=== PATIENT | female | born 1990 | race African-American/Black ===

== ENCOUNTER 2016-12-12 08:58 | Emergency (ER) | payer MEDICAID ==
[~2016-12-12] VITALS: Ht 152.4 cm; Wt 65.9 kg
[2016-12-12] MEDS: VISCOUS LIDOCAINE 2% 15 ML UDC MM PRN ×2 (11:45→11:50)
[2016-12-12] MEDS ORDERED: ACETAMINOPHEN 325MG TABLET PO ONE (11:45)
[2016-12-12 12:40] VITALS: BP 124/68
== END 2016-12-12 13:05 | disposition home or self-care (01) ==
LOC: ER 08:59
DX: M54.9 Dorsalgia, unspecified (principal); J02.9 Acute pharyngitis, unspecified; R05 Cough; J45.909 Unspecified asthma, uncomplicated; F12.10 Cannabis abuse, uncomplicated; V49.9XXA Car occupant (driver) (passenger) injured in unspecified traffic accident, initial encounter; Y93.89 Activity, other specified; Y92.89 Other specified places as the place of occurrence of the external cause; Y99.8 Other external cause status
CPT/HCPCS: 72070; 72100; 81025; 99284

== ENCOUNTER 2017-06-04 09:29 | Emergency (ER) | payer MEDICAID ==
[~2017-06-04] VITALS: Ht 172.7 cm; Wt 67.0 kg
[2017-06-04 09:39] VITALS: BP 120/62
== END 2017-06-04 14:08 | disposition left against medical advice (07) ==
LOC: ER 09:33
DX: J02.9 Acute pharyngitis, unspecified (principal); Z53.21 Procedure and treatment not carried out due to patient leaving prior to being seen by health care provider